=== PATIENT | male | born 1940 ===

== ENCOUNTER 2016-05-10 09:00 | Emergency (ER) | payer OTHER, MEDICARE ==
[2016-05-10 09:45] VITALS: BP 156/72
--- NOTE | 2016-05-10 10:47 | RAD ---
Indication: Foot injury. 3 views of left foot demonstrates no fracture or dislocation. No other bone or joint abnormalities identified. IMPRESSION: No fracture of the foot is noted.
--- NOTE | 2016-05-10 10:48 | RAD ---
Indication: Left ankle injury. 3 views of left ankle demonstrates no fracture. Soft tissue swelling is noted. Ankle mortise is intact. IMPRESSION: Soft tissue swelling without fracture.
--- NOTE | 2016-05-10 11:45 | UC ---
Lower Extremity/Ankle HPI - HPI Summary HPI Summary: LEFT FOOT & ANKLE SWELLING REDNESS AND SHOOTING PAIN AFTER STRETCHING. NO FEVER. POSITVE HISTORY OF DIABETES. NO HISTORY OF GOUT. - History of Current Complaint Chief Complaint: UCLowerExtremity Stated Complaint: LEFT FOOT/SHOOTING PAIN,SWELLING Time Seen by Provider: 05/10/16 10:04 Hx Obtained From: Patient Onset/Duration: Sudden Onset, Lasting Days, Still Present Severity Initially: Moderate Severity Currently: Moderate Aggravating Factor(s): Ambulation Able to Bear Weight: Yes - Risk Factors Gout Risk Factors: Diabetes DVT Risk Factors: Negative - Allergies/Home Medications Allergies/Adverse Reactions: Allergies Allergy/AdvReac Type Severity Reaction Status Date / Time Adhesive Tape Allergy Rash Verified 05/10/16 10:06 Amoxicillin Allergy Itching Verified 05/10/16 09:39 Capsaicin Allergy Itching Verified 05/10/16 10:06 Celecoxib [From Celebrex] Allergy Unknown Verified 05/10/16 10:06 Reaction Details Doxycycline Allergy Itching Verified 05/10/16 10:06 Hydrocortisone Allergy Rash Verified 05/10/16 10:06 [From Cortisporin] Latex Allergy Rash Verified 05/10/16 09:39 Metoprolol Allergy See Comment Verified 05/10/16 10:06 Neomycin [From Cortisporin] Allergy Rash Verified 05/10/16 10:06 Polymyxin B Allergy Rash Verified 05/10/16 10:06 [From Cortisporin] Home Medications: Home Medications Cyanocobalamin TAB* [Vitamin B12 TAB*] 500 mcg PO DAILY 05/10/16 [History Confirmed 05/10/16] Misc Natural Products [Osteo Bi-Flex Joint Shiel] 2 tab PO DAILY 05/10/16 [ History Confirmed 05/10/16] Multivitamins/Minerals TAB* [Thera M Plus TAB*] 1 tab PO DAILY 05/10/16 [ History Confirmed 05/10/16] PMH/Surg Hx/FS Hx/Imm Hx Previously Healthy: Yes Endocrine History Of: Reports: Diabetes Denies: Thyroid Disease Cardiovascular History Of: Reports: Hypertension Denies: Cardiac Disorders, Congestive Heart Failure Respiratory History Of: Denies: Asthma GI/ History Of: Denies: Renal Disease - Surgical History Surgical History: Yes Surgery Procedure, Year, and Place: right knee - Family History Known Family History: Positive: Diabetes - Social History Occupation: Retired Lives: With Family Alcohol Use: None Substance Use Type: None Smoking Status (MU): Never Smoked Tobacco - Immunization History Most Recent Influenza Vaccination: 2016 Review of Systems Constitutional: Negative Skin: Negative Eyes: Negative ENT: Negative Respiratory: Negative Cardiovascular: Negative Gastrointestinal: Negative Genitourinary: Negative Motor: Negative Neurovascular: Negative Musculoskeletal: Arthralgia, Edema, Myalgia Neurological: Negative Psychological: Negative All Other Systems Reviewed And Are Negative: Yes Physical Exam Triage Information Reviewed: Yes Appearance: Well-Appearing, No Pain Distress, Well-Nourished Vital Signs: Initial Vital Signs Temp 98.5 F 05/10/16 09:40 Pulse 72 05/10/16 09:40 Resp 20 05/10/16 09:40 BP 156/72 05/10/16 09:40 Pulse Ox 99 05/10/16 09:40 Vital Signs Reviewed: Yes Eye Exam: Normal Eyes: Positive: Conjunctiva Clear ENT Exam: Normal ENT: Positive: Normal ENT inspection, Hearing grossly normal, Pharynx normal, TMs normal Dental Exam: Normal Neck exam: Normal Neck: Positive: Supple, Nontender Respiratory Exam: Normal Respiratory: Positive: Chest non-tender, Lungs clear, Normal breath sounds, No respiratory distress, No accessory muscle use Cardiovascular Exam: Normal Cardiovascular: Positive: RRR, No Murmur, Pulses Normal Abdominal Exam: Normal Abdomen Description: Positive: Nontender, No Organomegaly Musculoskeletal: Positive: Strength Intact, ROM Intact, Edema @, Other: - LEFT FOOT EDEMA WARMTH AND MILD ERRETHEMA; SCANT ECCHYMOSES LATERAL ANKLE Neurological Exam: Normal Psychological Exam: Normal Skin Exam: Normal Lower Extremity Course/Dx - Differential Dx/Diagnosis Differential Diagnosis/HQI/PQRI: Cellulitis, Fracture (Closed), Fracture (Open) , Gout, Sprain, Strain Provider Diagnoses: LEFT ANKLE SPRAIN. POSSIBLE CELLULITIS Discharge - Discharge Plan Condition: Stable Disposition: HOME Prescriptions: Cephalexin CAP* [Keflex CAP*] 500 mg PO QID #40 cap Patient Education Materials: Ankle Sprain (ED), Cellulitis (ED) Referrals: Musa Norwood MD [Primary Care Provider] -
== END 2016-05-10 11:57 | disposition home or self-care (01) ==
LOC: UCCORT 09:00
DX: S93.402A Sprain of unspecified ligament of left ankle, initial encounter (principal); X50.1XXA Overexertion from prolonged static or awkward postures, initial encounter; Y93.89 Activity, other specified; Y92.9 Unspecified place or not applicable; Z88.0 Allergy status to penicillin; Z88.8 Allergy status to other drugs, medicaments and biological substances
CPT/HCPCS: 99203; G0463